=== PATIENT | female | born 1975 | race Hispanic/Latino ===

== ENCOUNTER 2017-07-06 14:44 | Emergency (ER) | payer OTHER ==
[~2017-07-06] VITALS: Ht 154.9 cm; Wt 124.7 kg
--- NOTE | 2017-07-06 15:26 | Diagnostic Imaging Report ---
PROCEDURE: A single AP view of the chest. COMPARISON: None. INDICATIONS: LEG SWELLING FINDINGS: Lines/tubes: None. Lungs: The lungs are well inflated. Linear opacities in the left mid to lower lung likely represent subsegmental atelectasis. There is no evidence of pneumonia or pulmonary edema. Pleura: There is no pleural effusion or pneumothorax. Heart and mediastinum: Cardiac silhouette is unremarkable. Pulmonary vasculature is normal. Bones: No acute bony abnormality. IMPRESSION: 1. No acute cardiopulmonary abnormalities. Amadou Redman M.D. Dictated by: Amadou Redman M.D. on 07/06/2017 at 15:27 Electronically approved by: Amadou Redman M.D. on 07/06/2017 at 15:27
[2017-07-06 16:31] VITALS: BP 138/88
== END 2017-07-06 16:35 | disposition home or self-care (01) ==
LOC: ER 14:52
DX: S80.02XA Contusion of left knee, initial encounter (principal); V43.52XA Car driver injured in collision with other type car in traffic accident, initial encounter; Y93.89 Activity, other specified; Y92.410 Unspecified street and highway as the place of occurrence of the external cause; R00.0 Tachycardia, unspecified; F41.9 Anxiety disorder, unspecified; R07.89 Other chest pain
CPT/HCPCS: 71045; 93971; 99283

== ENCOUNTER 2019-03-11 07:28 | Emergency (ER) | payer BC ==
[~2019-03-11] VITALS: Ht 157.5 cm; Wt 127.0 kg
[2019-03-11] MEDS ORDERED: MORPHINE SULFATE 2 MG/ML SYR 1ML IV STA (07:34)
[2019-03-11] MEDS ORDERED: FAMOTIDINE 20 MG/2 ML VIAL IV STA (07:34)
[2019-03-11] MEDS ORDERED: SODIUM CHLORIDE 0.9% 1000ML 1,000 ML IV STA ×2 (07:34)
[2019-03-11] MEDS ORDERED: ONDANSETRON HCL INJ 2MG/ML 2ML 2 MG/ML VIAL IV STA (07:34)
[2019-03-11 08:01] LABS: BASOPHILS % 0.3 % (0.0-1.0); EOSINOPHILS # (AUTO) 0.3 (0.0-0.4); EOSINOPHILS % 2.5 % (0.0-6.0); HEMATOCRIT 45.6 % (34.2-44.1); HEMOGLOBIN 15.4 g/dL (12.0-16.0); LYMPHOCYTES # (AUTO) 2.7 (1.0-3.2); LYMPHOCYTES % 22.6 % (18.0-39.1); MEAN CORPUSCULAR HEMOGLOBIN 31.3 pg (28-32); MEAN CORPUSCULAR HGB CONC 33.8 g/dL (31-35); MEAN CORPUSCULAR VOLUME 92.7 fL (81-99); MONOCYTES # (AUTO) 0.7 (0.2-0.8); MONOCYTES % 5.8 % (4.4-11.3); NEUTROPHILS # (AUTO) 8.1 (2.1-6.9); NEUTROPHILS % 68.5 % (38.7-80.0); PLATELET COUNT 309 x10e3/uL (140-360); RED BLOOD COUNT 4.92 x10e6/uL (3.6-5.1); RED CELL DISTRIBUTION WIDTH 13.3 % (11.7-14.4)
[2019-03-11 08:09] LABS: PREGNANCY TEST, URINE NEGATIVE (NEGATIVE)
[2019-03-11 08:19] LABS: CLARITY,URINE HAZY (CLEAR); COLOR,URINE YELLOW (YELLOW); LEUKOCYTE ESTERASE ,URINE NEGATIVE (NEGATIVE)
[2019-03-11 08:20] LABS: BILIRUBIN,URINE NEGATIVE (NEGATIVE); KETONES,URINE TRACE (NEGATIVE); NITRITE,URINE NEGATIVE (NEGATIVE); PROTEIN,URINE DIPSTICK TRACE (NEGATIVE); URINE UROBILINOGEN 0.2 mg/dL (0.2 - 1)
[2019-03-11 08:31] LABS: BACTERIA,URINE MANY /HPF; CALCIUM OXALATE CRYSTALS,UR MANY (FEW); EPITHELIAL CELLS,URINE MANY /LPF
[2019-03-11 08:32] LABS: AMORPHOUS SEDIMENT,URINE MODERATE (FEW); MUCUS,URINE FEW (RARE); URIC ACID CRYSTALS,URINE FEW (FEW)
[2019-03-11 09:07] LABS: ALANINE AMINOTRANSFERASE 34 IU/L (0-55); ALBUMIN/GLOBULIN RATIO 1.2 (0.8-2.0); ALKALINE PHOSPHATASE 113 IU/L (40-150); ANION GAP 13.9 mmol/L (8-16); BLOOD UREA NITROGEN 15 mg/dL (7-26); BUN/CREATININE RATIO 19 (6-25); CALCIUM 9.4 mg/dL (8.4-10.2); CARBON DIOXIDE 18 mmol/L (22-29); CHLORIDE 108 mmol/L (98-107); CREATINE KINASE 30 IU/L (29-168); CREATININE, SERUM 0.77 mg/dL (0.57-1.11); EST GLOMERULAR FILTRATION RATE > 60 ML/MIN (60-); GLUCOSE 98 mg/dL (74-118); LIPASE 18 U/L (8-78); POTASSIUM 3.9 mmol/L (3.5-5.1); SODIUM 136 mmol/L (136-145)
[2019-03-11 09:56] VITALS: BP 122/79
== END 2019-03-11 10:08 | disposition home or self-care (01) ==
LOC: ER 07:28
DX: R19.7 Diarrhea, unspecified (principal); R11.2 Nausea with vomiting, unspecified
CPT/HCPCS: 36415; 80053; 81001; 81025; 82550; 82553; 83690; 83735; 84484; 85025; 93005; 99283; J2270; J2405; J7030

== ENCOUNTER 2020-02-23 12:05 | Emergency (ER) | payer BC ==
[~2020-02-23] VITALS: Ht 157.5 cm; Wt 127.0 kg
--- OUTSIDE RECORDS SUMMARY | 2020-02-23 12:16 | XMS REPORT | Continuity of Care Document ---
Author Author [facility] t Organization [facility] Address [address] [place] [address] Phone Unavailable Care Team Providers Care Bee Worker Name Role Phone NO, PCP PCP Unavailable LAVON GIORDANO Unavailable Payers Payer Name Policy Type Policy Number Effective Date Expiration Date S jose juan [employer] P[employer] [id number] I [facility] Problems This patient has no known problems. Allergies, Adverse Reactions, Alerts Allergy Name Allergy Type Status Severity Reaction(s) Onset Date Inacti ve Date Treating Clinician Comments Source Penicillin Allergy to Substance Active swelling, rash 2019-03-02 0 00:00:00 [facility] Amoxicillin Allergy to Substance Active Moderate 2019-01-15 00:00: 00 [facility] No Known Allergies DA Active U 2016-02-22 00:00:00 [facility] Medications This patient has no known medications. Procedures This patient has no known procedures. Encounters Start Date/Time End Date/Time [facility] ID Source 2019-03-11 07:28:00 2019-03-11 10:08:00 Departed Emergency Room [facility] [id number] [facility] 2019-01-15 20:43:00 2019-01-16 00:50:00 Departed Emergency Room [facility] [id number] [facility] 2017-07-06 14:52:00 2017-07-06 16:35:00 Departed Emergency Room ER LAVON GIORDANO [facility] [id number] [facility] Results Test Description Test Time Test Comments Results Result Comments Source Creatine Kinase MB 2019-03-11 09:21:00 Test Item Creatine Kinase MB (test code = 61615-9) 0.60 0-5.0 [facility] [id number] 09:21:00* Test Item Value Reference Range Interpretation Comments Troponin I (test code = OBS3227) 0.002 0[facility]0.300 [facility] Tjwvf4890-79-07 09:08:00* Test Item Value Reference Range Interpretation Comments Sodium Level (test code = 2951-2) 136 136-145 [facility] Pmiwp2082-00-09 09:08:00* Test Item Value Reference Range Interpretation Comments Potassium Level (test code = 2823-3) 3.9 3.5-5.1 [facility]ide Rbmgf7424-47-96 09:08:00* Test Item Value Reference Range Interpretation Comments Chloride Level (test code = 2075-0) 108 98-107 H [facility] HospitalCarbon Dioxide Jouaj1768-52-53 09:08:00* Test Item Value Reference Range Interpretation Comments Carbon Dioxide Level (test code = 2028-9) 18 22-29 L [facility] HospitalAnion Mxt3795-60-00 09:08:00* Test Item Value Reference Range Interpretation Comments Anion Gap (test code = 20264-9) 13.9 8-16 [facility] Urea Qpcqhoau3195-48-04 09:08:00* Test Item Value Reference Range Interpretation Comments Blood Urea Nitrogen (test code = 3094-0) 15 7-26 [facility]Creatinine2019-12-10 09:08:00* Test Item Value Reference Range Interpretation Comments Creatinine (test code = 2160-0) 0.77 0.57-1.11 [facility]BUN/Creatinine Mxrdc2984-22-76 09:08:00* Test Item Value Reference Range Interpretation Comments BUN/Creatinine Ratio (test code = 3097-3) 19 6-25 [facility]Estimat Glomerular Filtration Rate 2019-03-11 09:08:00* Test Item Value Reference Range Interpretation Comments Estimat Glomerular Filtration Rate (test code = 770355757) > 60 >60 Ranges were taken from the National Kidney Disease Education Program and the [employer] literature.Reference ranges:60 or greater: Ivuznx90-69 ( for 3 consecutive months): Chronic kidney disease 15 or less: Kidney failureNorth [facility] HospitalGlucose Glcpk3851-69-72 09:08:00* Test Item Value Reference Range Interpretation Comments Glucose Level (test code = BIX4628) 98 74-118 [facility]Calcium Tjxyk4870-14-16 09:08:00* Test Item Value Reference Range Interpretation Comments Calcium Level (test code = 74149-7) 9.4 8.4-10.2 [facility]Magnesium Pywpv3710-34-89 09:08:00* Test Item Value Reference Range Interpretation Comments Magnesium Level (test code = 99265-9) 2.0 1.3-2.1 [facility] HospitalTotal Dytrgcasb5627-27-88 09:08:00* Test Item Value Reference Range Interpretation Comments Total Bilirubin (test code = 1975-2) 0.6 0.2-1.2 [facility] HospitalAspartate Amino Transf (AST/SGOT) 2019-03-11 09:08:00* Test Item Value Reference Range Interpretation Comments Aspartate Amino Transf (AST/SGOT) (test code = Aspartate Amino Transf (AST/SGOT)) 20 5-34 [facility] HospitalAlanine Aminotransferase (ALT/SGPT) 2019-03-11 09:08:00* Test Item Value Reference Range Interpretation Comments Alanine Aminotransferase (ALT/SGPT) (test code = 1742-6) 34 0-55 [facility] HospitalTotal Tyklybr3415-48-67 09:08:00* Test Item Value Reference Range Interpretation Comments Total Protein (test code = 2885-2) 7.3 6.5-8.1 [facility] HospitalAlbumin2019-12-10 09:08:00* Test Item Value Reference Range Interpretation Comments Albumin (test code = 1751-7) 4.0 3.5-5.0 [facility] HospitalGlobulin2019-12-10 09:08:00* Test Item Value Reference Range Interpretation Comments Globulin (test code = 37606-8) 3.3 2.3-3.5 [facility] HospitalAlbumin/Globulin Dprzp8975-71-97 09:08:00 * Test Item Value Reference Range Interpretation Comments Albumin/Globulin Ratio (test code = 1759-0) 1.2 0.8-2.0 [facility] HospitalAlkaline Gjidzqznmgo1112-82-97 09:08:00* Test Item Value Reference Range Interpretation Comments Alkaline Phosphatase (test code = 6768-6) 113 40-150 [facility] HospitalCreatine Ldzeqg4101-10-04 09:08:00* Test Item Value Reference Range Interpretation Comments Creatine Kinase (test code = 2157-6) 30 29-168 [facility] HospitalLipase2019-12-10 09:08:00* Test Item Value Reference Range Interpretation Comments Lipase (test code = 3040-3) 18 8-78 [facility] HospitalUrine [id number] 08:32:00* Test Item Value Reference Range Interpretation Comments Urine WBC (test code = 5821-4) 6-10 0-5 H [facility] HospitalUrine OCU4842-07-63 08:32:00* Test Item Value Reference Range Interpretation Comments Urine RBC (test code = 61374-9) 11-20 0-5 H [facility] HospitalUrine Wsmpumkf7844-34-00 08:32:00* Test Item Value Reference Range Interpretation Comments Urine Bacteria (test code = 28444-5) MANY NONE H [facility] HospitalUrine Epithelial Ohfqn8887-24-75 08:32:00 * Test Item Value Reference Range Interpretation Comments Urine Epithelial Cells (test code = 54630-9) MANY NONE [facility] HospitalU[facility] Calcium Oxalate Pbgfnfde2328-00-41 08:32:00* Test Item Value Reference Range Interpretation Comments Urine Calcium Oxalate Crystals (test code = 5774-5) MANY FE W H [facility] HospitalU[facility] Uric Acid Lgxpbauv9308-16-40 08:32:00* Test Item Value Reference Range Interpretation Comments Urine Uric Acid Crystals (test code = 5817-2) FEW FEW [facility] HospitalU[facility] Amorphous Osiwirlc1257-77-37 08:32:00* Test Item Value Reference Range Interpretation Comments Urine Amorphous Sediment (test code = 8246-1) MODERATE FEW H [facility] HospitalUrine Wffmk7535-12-01 08:32:00* Test Item Value Reference Range Interpretation Comments Urine Mucus (test code = 8247-9) FEW RARE H [facility] HospitalUrine Amivb9628-27-54 08:20:00* Test Item Value Reference Range Interpretation Comments Urine Color (test code = 5778-6) YELLOW YELLOW [facility] Ngkukhw7430-61-08 08:20:00* Test Item Value Reference Range Interpretation Comments Urine Clarity (test code = 56105-2) HAZY CLEAR [facility] HospitalUrine Specific Vicvvlz1399-54-50 08:20:00 * Test Item Value Reference Range Interpretation Comments Urine Specific [place] (test code = 5811-5) 1.025 1.010-1.02 5 [facility] HospitalUrine qH3685-83-31 08:20:00* Test Item Value Reference Range Interpretation Comments Urine pH (test code = 77249-6) 5 5-7 [facility] Leukocyte Znjnqakj9996-88-65 08:20:00* Test Item Value Reference Range Interpretation Comments Urine Leukocyte Esterase (test code = 5799-2) NEGATIVE NEGATIVE [facility] HospitalU[facility] Swpdhit0765-18-90 08:20:00* Test Item Value Reference Range Interpretation Comments Urine Nitrite (test code = 48977-6) NEGATIVE NEGATIVE [facility] HospitalU[facility] Phwfoaz6647-05-96 08:20:00* Test Item Value Reference Range Interpretation Comments Urine Protein (test code = 5804-0) TRACE NEGATIVE H [facility] HospitalUrine Glucose (UA)2019-03-11 08:20:00* Test Item Value Reference Range Interpretation Comments Urine Glucose (UA) (test code = 2349-9) NEGATIVE NEGATIVE [facility] HospitalU[facility] Knccicl3192-27-01 08:20:00* Test Item Value Reference Range Interpretation Comments Urine Ketones (test code = 33226-0) TRACE NEGATIVE H [facility] HospitalUrine Fhqbkfbkfvji4461-92-87 08:20:00* Test Item Value Reference Range Interpretation Comments Urine Urobilinogen (test code = 96958-8) 0.2 0.2-1 [facility] Pfiudaxph3438-82-72 08:20:00* Test Item Value Reference Range Interpretation Comments Urine Bilirubin (test code = 1978-6) NEGATIVE NEGATIVE [facility] Aeekl5663-27-09 08:20:00* Test Item Value Reference Range Interpretation Comments Urine Blood (test code = 17690-6) 2+ NEGATIVE [facility] Nefy4247-80-75 08:09:00* Test Item Value Reference Range Interpretation Comments Urine Test (test code = 2106-3) NEGATIVE NEGATIVE [facility] HospitalWhite Blood Nypka0541-70-92 08:08:00* Test Item Value Reference Range Interpretation Comments White Blood Count (test code = 6690-2) 11.76 4.8-10.8 H [facility] HospitalRed Blood Hcbjn7110-55-09 08:08:00* Test Item Value Reference Range Interpretation Comments Red Blood Count (test code = 789-8) 4.92 3.6-5.1 [facility] HospitalHemoglobin2019-12-10 08:08:00* Test Item Value Reference Range Interpretation Comments Hemoglobin (test code = 20476-7) 15.4 12.0-16.0 [facility] HospitalHematocrit2019-12-10 08:08:00* Test Item Value Reference Range Interpretation Comments Hematocrit (test code = 4544-3) 45.6 34.2-44.1 H [facility] HospitalMean Corpuscular Oyawjq0994-25-22 08:08:00* Test Item Value Reference Range Interpretation Comments Mean Corpuscular Volume (test code = 787-2) 92.7 81-99 [facility] HospitalMean Corpuscular Afzhkedhtc7619-81-48 08:08:00* Test Item Value Reference Range Interpretation Comments Mean Corpuscular Hemoglobin (test code = 785-6) 31.3 28-32 [facility] HospitalMean Corpuscular Hemoglobin Concent 2019-03-11 08:08:00* Test Item Value Reference Range Interpretation Comments Mean Corpuscular Hemoglobin Concent (test code = 786-4) 33.8 31-35 [facility] HospitalRed Cell Distribution Ehpaw5546-23-32 08:08:00* Test Item Value Reference Range Interpretation Comments Red Cell Distribution Width (test code = 62441-7) 13.3 11.7 -14.4 [facility] HospitalPlatelet Ynktm1482-09-17 08:08:00* Test Item Value Reference Range Interpretation Comments Platelet Count (test code = 777-3) 309 140-360 [facility] HospitalNeutrophils (%) (Auto)2019-03-11 08:08:00 * Test Item Value Reference Range Interpretation Comments Neutrophils (%) (Auto) (test code = 34564-3) 68.5 38.7-80.0 [facility] HospitalLymphocytes (%) (Auto)2019-03-11 08:08:00 * Test Item Value Reference Range Interpretation Comments Lymphocytes (%) (Auto) (test code = 736-9) 22.6 18.0-39.1 [facility] HospitalMonocytes (%) (Auto)2019-03-11 08:08:00* Test Item Value Reference Range Interpretation Comments Monocytes (%) (Auto) (test code = 5905-5) 5.8 4.4-11.3 [facility] HospitalEosinophils (%) (Auto)2019-03-11 08:08:00 * Test Item Value Reference Range Interpretation Comments Eosinophils (%) (Auto) (test code = 713-8) 2.5 0.0-6.0 [facility] HospitalBasophils (%) (Auto)2019-03-11 08:08:00* Test Item Value Reference Range Interpretation Comments Basophils (%) (Auto) (test code = 706-2) 0.3 0.0-1.0 [facility] HospitalIM GRANULOCYTES %2019-03-11 08:08:00* Test Item Value Reference Range Interpretation Comments IM GRANULOCYTES % (test code = IM GRANULOCYTES %) 0.3 0.0- 1.0 [facility] HospitalNeutrophils # (Auto)2019-03-11 08:08:00* Test Item Value Reference Range Interpretation Comments Neutrophils # (Auto) (test code = 751-8) 8.1 2.1-6.9 H [facility] HospitalLymphocytes # (Auto)2019-03-11 08:08:00* Test Item Value Reference Range Interpretation Comments Lymphocytes # (Auto) (test code = 12685-2) 2.7 1.0-3.2 [facility] HospitalMonocytes # (Auto)2019-03-11 08:08:00* Test Item Value Reference Range Interpretation Comments Monocytes # (Auto) (test code = 742-7) 0.7 0.2-0.8 [facility] HospitalEosinophils # (Auto)2019-03-11 08:08:00* Test Item Value Reference Range Interpretation Comments Eosinophils # (Auto) (test code = 711-2) 0.3 0.0-0.4 [facility] HospitalBasophils # (Auto)2019-03-11 08:08:00* Test Item Value Reference Range Interpretation Comments Basophils # (Auto) (test code = 704-7) 0.0 0.0-0.1 [facility] HospitalAbsolute Immature Granulocyte (auto 2019-03-11 08:08:00* Test Item Value Reference Range Interpretation Comments Absolute Immature Granulocyte (auto (jessi t code = Absolute Immature Granulocyte (auto) 0.03 0-0.1 [facility] HospitalCHE[facility]INGLE ([facility]) [facility] [address] [place] [address] Patient Name: TILA TERRELL MR #: [id number] : 1975 Age/Sex: 41/F Req #: [id number] Adm Physician: Anabelle rdered by: AILYN WEI NP Report #: [id number] Location: ER Room/Bed: Procedure: [id number] DX/CHEST SINGLE (PORTABLE) Exam Lazaro e: 07/06/17 Exam Time: 1505 REPORT STATUS: Sign ed PROCEDURE: A single AP view of the chest. COMPARISON: None. INDICATIONS: LEG SWELLING FINDINGS: Lines/tubes: None. Lung s: The lungs are well inflated. Linear opacities in the left mid to lower thomas ng likely represent subsegmental atelectasis. There is no evidence of pneumon ia or pulmonary edema. Pleura: There is no pleural effusion or pneumothor ax. Heart and mediastinum: Cardiac silhouette is unremarkable. Pulmonary vasculature is normal. Bones: No acute bony abnormality. IMPRESSI ON: 1. No acute cardiopulmonary abnormalities. Scotty guan M.D. Dictated by: Scotty Redman M.D. on 07/06/2017 at 15:27 Electronically approved by: Scotty Redman M.D. on 07/06/2017 at 15:27 Dictated By: SCOTTY REDMAN MD 1527 Transcribed By: JUAN on 07/06/17 1527 COPY TO: AILYN WEI NP
--- NOTE | 2020-02-23 12:51 | Emergency Department Note ---
History of Present Illnes History of Present Illness Chief Complaint: COVID PUI History of Present Illness This is a 44 year old female with 2 day history of a cough, body aches and subjective fever. Patient was exposed to COVID from her coworkers. . Historian: Patient Arrival Mode: Car Additional Treatment SENIOR STRUCTURAL ENGINEER: NONE Onset (how long ago): day(s) (2) Location: URI Radiation: Reports non-radiation Severity: moderate Onset quality: gradual Duration (how long): day(s) (2) Timing of current episode: constant Progression: worsening Chronicity: new Context: Reports recent illness Relieving factors: none Exacerbating factors: none Associated symptoms: Reports cough, Reports fever/chills, Reports malaise; Denies nausea/vomiting Past Medical/Family History Physician Review I have reviewed the patient's past medical and family history. Any updates have been documented here. Past Medical History Recent Fever: No Clinical Suspicion of Infectio: No New/Unexplained Change in Ment: No Past Medical History: None Past Surgical History: Tubal Ligation Other Last Tetanus: UTD Review of Systems Review of Systems Constitutional: Reports as per HPI EENTM: Reports no symptoms Cardiovascular: Reports no symptoms Respiratory: Reports as per HPI Gastrointestinal: Reports no symptoms Genitourinary: Reports no symptoms Musculoskeletal: Reports no symptoms Integumentary: Reports no symptoms Neurological: Reports no symptoms Psychological: Reports no symptoms Endocrine: Reports no symptoms Hematological/Lymphatic: Reports no symptoms Physical Exam Related Data Allergies: Coded Allergies: amoxicillin (Verified Allergy, Intermediate, 02/23/20) Penicillins (Verified Allergy, Unknown, swelling, rash, 03/11/19) Triage Vital Signs Vital Signs Date Time Temp Pulse Resp B/P (MAP) Pulse Ox O2 Delivery O2 Flow Rate FiO2 02/23/20 12:20 98.4 82 18 169/89 99 Room Air Vital signs reviewed: Yes Physical Exam CONSTITUTIONAL Constitutional: Present well-developed, Present well-nourished HENT HENT: Present normocephalic, Present atraumatic, Present oropharynx clear/m oist, Present nose normal HENT L/R: Present left ext ear normal, Present right ext ear normal EYES Eyes: Reports PERRL, Reports conjunctivae normal NECK Neck: Present ROM normal PULMONARY Pulmonary: Present effort normal, Present breath sounds normal CARDIOVASCULAR Cardiovascular: Present regular rhythm, Present heart sounds normal, Present capillary refill normal, Present tachycardia GASTROINTESTINAL Abdominal: Present soft, Present nontender, Present bowel sounds normal GENITOURINARY Genitourinary: Present exam deferred SKIN Skin: Present warm, Present dry MUSCULOSKELETAL Musculoskeletal: Present ROM normal NEUROLOGICAL Neurological: Present alert, Present oriented x 3, Present no gross motor or sensory deficits PSYCHOLOGICAL Psychological: Present mood/affect normal, Present judgement normal Assessment & Plan Medical Decision Making MDM Patient is a 44-year-old well-appearing with URI symptoms, generalized malaise and fever for 2 days. Patient is well-appearing, nontoxic, clear to auscultation bilaterally with reassuring vital signs slight tachycardia. Patient likely with Covid 19 infection given her recent exposure, we'll swab the area and also with sore throat with no exudates, we'll swab for strep as well. She understands to take January 18 precautions to include quarantine. Reassessment Reassessment Patient with pneumonia, no strep, will follow up on Covid results as an outpatient Assessment & Plan Final Impression: (1) Suspected COVID-19 virus infection (2) Cough Depart Disposition: HOME, SELF-CARE Last Vital Signs Date Time Temp Pulse Resp B/P (MAP) Pulse Ox O2 Delivery O2 Flow Rate FiO2 02/23/20 12:20 98.4 82 18 169/89 99 Room Air DARYL BHANDARI MD Feb 23, 2020 12:51
--- NOTE | 2020-02-23 14:30 | Diagnostic Imaging Report ---
X-ray chest frontal view History: Cough, fever Comparison: None Findings: Lines and tubes: Not applicable Central airways: Unremarkable Cardiac silhouette: Unremarkable Mediastinal silhouettes: Unremarkable Pleura: No pleural effusion, pneumothorax or thickening Diaphragms: Unremarkable Lungs: No focal lung disease Skeletal structures: Unremarkable Extrathoracic soft tissues: Unremarkable Impression: No acute cardiopulmonary disease Signed by: Tu Loza MD on 02/23/2020 2:26 PM
== END 2020-02-23 16:10 | disposition home or self-care (01) ==
LOC: ER 12:13
DX: R05 Cough (principal); Z20.828 Contact with and (suspected) exposure to other viral communicable diseases
CPT/HCPCS: 71045; 83518; 87070; 99283; U0002